=== PATIENT | female | born 1970 | race Caucasian/White ===

== ENCOUNTER 2017-01-16 19:08 | Emergency (ER) | payer OTHER ==
[~2017-01-16] VITALS: Ht 157.5 cm; Wt 72.2 kg
[~2017-01-16 19:08] MED LIST: CEFDINIR300 MG PO; PERCOCET 5/31 TABLET PO
[2017-01-16 20:02] LABS: HEMATOCRIT 36.2 % (36.0-46.0); MCH 27.3 PG (29.0-34.0); MCHC 32.6 G/DL (30.0-36.0); MCV 83.6 FL (83-99); MEAN PLAT.VOLUME 9.5 uM^3 (9.5-12.4); PLATELET COUNT 331 K/uL (156-360); RBC DIS.WIDTH-CV 14.6 % (11.8-14.6); RBC DIS.WIDTH-SD 44.7 % (39-53); RED BLOOD COUNT 4.33 M/uL (3.80-5.20); WHITE BLOOD COUNT 9.9 K/uL (4.1-10.2)
[2017-01-16 20:09] LABS: CHLORIDE 104 mEq/L (99-109); POTASSIUM 4.3 mEq/L (3.7-5.4); SODIUM 138 mEq/L (136-147)
[2017-01-16 20:11] LABS: GLUCOSE 101 mg/dL (70-99)
[2017-01-16 20:12] LABS: ANION GAP 7 MEQ/L (2-14)
[2017-01-16 20:13] LABS: TOTAL BILIRUBIN 0.2 mg/dL (0.0-1.0)
[2017-01-16 20:14] LABS: SERUM ETHYL ALCOHOL < 10 mg/dL
[2017-01-16 20:15] LABS: ALKALINE PHOSPHATASE 80 IU/L (3-129); GFR ESTIMATE (CALCULATED) > 59 mL/min/
[2017-01-16 20:16] LABS: UREA NITROGEN (BUN) 8 mg/dL (9-23)
[2017-01-17 01:24] LABS: ADD MIUA? YES; BILIRUBIN NEGATIVE; BLOOD NEGATIVE; COLOR YELLOW ((YELLOW)); GLUCOSE (STRIP) NEGATIVE; KETONES 5; LEUKOCYTES NEGATIVE; NITRITE POSITIVE; PROTEIN (STRIP) 30; SPECIFIC GRAVITY 1.024 (1.000-1.030); UROBILINOGEN 0.2 MG/DL (0.2-1.0)
[2017-01-17 01:34] LABS: AMPHETAMINE NEGATIVE (500 ng/mL); BACTERIA 2+ /HPF; BARBITURATES NEGATIVE (200 ng/mL); BENZODIAZEPINES PRESUMPTIVE POSITIVE (150 ng/mL); COCAINE NEGATIVE (150 ng/mL); EPITHELIAL CELLS RARE /HPF; METHADONE NEGATIVE (200 ng/mL); METHAMPHETAMINE NEGATIVE (500 ng/mL); MUCUS TRACE /LPF; OPIATES (MORPHINE) NEGATIVE (100 ng/mL); OXYCODONE PRESUMPTIVE POSITIVE (100 ng/mL); PHENCYCLIDINE NEGATIVE (25 ng/mL); RED BLOOD CELLS 0-5 /HPF (0-5); THC CANNABINOIDS NEGATIVE (50 ng/mL)
[2017-01-17 01:35] LABS: ADD MEDTOX COMMENT Y; INTERNAL CONTROLS VALID? YES; PROPOXYPHENE NEGATIVE (300 ng/mL); TRICYCLIC ANTIDEPRESSANTS PRESUMPTIVE POSITIVE (300 ng/mL)
[2017-01-17 02:25] LABS: BENZODIAZEPINES, URINE SCREEN POSITIVE (200 ng/mL)
[2017-01-17 02:36] VITALS: BP 99/78
== END 2017-01-17 02:38 | disposition home or self-care (01) ==
LOC: EME 19:08
PROVIDERS: Emergency Medicine
DX: F41.1 Generalized anxiety disorder (principal); F32.9 Major depressive disorder, single episode, unspecified; K21.9 Gastro-esophageal reflux disease without esophagitis; F17.200 Nicotine dependence, unspecified, uncomplicated
CPT/HCPCS: 80053; 81003; 84999; 85027; 90839; 99281; 99285; G0480; J1630; J2060

== ENCOUNTER 2017-06-27 16:46 | Inpatient (IN) | payer OTHER ==
[~2017-06-27] VITALS: Ht 165.1 cm; Wt 86.6 kg
[2017-06-27 17:29] LABS: HEMATOCRIT 33.4 % (36.0-46.0); MCH 24.2 PG (29.0-34.0); MCHC 31.4 G/DL (30.0-36.0); MCV 77.1 FL (83-99); MEAN PLAT.VOLUME 8.9 uM^3 (9.5-12.4); PLATELET COUNT 339 K/uL (156-360); RBC DIS.WIDTH-CV 16.8 % (11.8-14.6); RBC DIS.WIDTH-SD 47.2 % (39-53); RED BLOOD COUNT 4.33 M/uL (3.80-5.20); WHITE BLOOD COUNT 7.3 K/uL (4.1-10.2)
[2017-06-27] MEDS ORDERED: REMERON45 MG PO (17:35)
[2017-06-27] MEDS ORDERED: GABAPENTIN800 MG PO (17:35)
[2017-06-27 17:39] LABS: CHLORIDE 106 mEq/L (99-109); POTASSIUM 4.6 mEq/L (3.7-5.4); SODIUM 140 mEq/L (136-147)
[2017-06-27] MEDS ORDERED: DESYREL100 MG PO (17:40)
[2017-06-27 17:41] LABS: GLUCOSE 112 mg/dL (70-99)
[2017-06-27] MEDS ORDERED: FLEXERIL5 MG PO (17:41)
[2017-06-27 17:42] LABS: ANION GAP 8 MEQ/L (2-14)
[2017-06-27] MEDS ORDERED: FORFIVO XL450 MG PO (17:42)
[2017-06-27] MEDS ORDERED: ATARAX,VISTARIL25 MG PO (17:42)
[2017-06-27] MEDS ORDERED: CYMBALTA60 MG PO (17:43)
[2017-06-27 17:44] LABS: SERUM ETHYL ALCOHOL < 10 mg/dL
[2017-06-27 17:45] LABS: GFR ESTIMATE (CALCULATED) > 59 mL/min/
[2017-06-27 17:46] LABS: UREA NITROGEN (BUN) 10 mg/dL (9-23)
[2017-06-27] MEDS ORDERED: MINIPRESS2 MG PO (17:47)
[2017-06-27 17:53] LABS: QUANTITATIVE HCG < 4.0 MIU/ML
[2017-06-27 18:36] LABS: AMPHETAMINE NEGATIVE (500 ng/mL); BARBITURATES NEGATIVE (200 ng/mL); BENZODIAZEPINES PRESUMPTIVE POSITIVE (150 ng/mL); COCAINE NEGATIVE (150 ng/mL); INTERNAL CONTROLS VALID? YES; METHADONE NEGATIVE (200 ng/mL); METHAMPHETAMINE NEGATIVE (500 ng/mL); OPIATES (MORPHINE) NEGATIVE (100 ng/mL); OXYCODONE PRESUMPTIVE POSITIVE (100 ng/mL); PHENCYCLIDINE NEGATIVE (25 ng/mL); PROPOXYPHENE NEGATIVE (300 ng/mL); THC CANNABINOIDS NEGATIVE (50 ng/mL); TRICYCLIC ANTIDEPRESSANTS NEGATIVE (300 ng/mL)
[2017-06-27 18:37] LABS: ADD MEDTOX COMMENT Y
[2017-06-27 19:05] LABS: BENZODIAZEPINES, URINE SCREEN POSITIVE (200 ng/mL)
[2017-06-27] MEDS ORDERED: PERCOCET 10/1 TABLET PO (19:53)
[2017-06-27 21:19] VITALS: BP 134/90
[2017-06-28 07:46] VITALS: BP 123/64
== END 2017-06-28 11:44 | disposition home or self-care (01) | DRG 882 ==
LOC: EME 16:46 → EDOF 18:36 → ENRESERV 20:36 → 1WEST 21:12
PROVIDERS: Emergency Medicine
DX: F43.25 Adjustment disorder with mixed disturbance of emotions and conduct (principal); F60.9 Personality disorder, unspecified; S51.812A Laceration without foreign body of left forearm, initial encounter; X78.8XXA Intentional self-harm by other sharp object, initial encounter; F43.10 Post-traumatic stress disorder, unspecified; F41.9 Anxiety disorder, unspecified; F32.9 Major depressive disorder, single episode, unspecified; G89.29 Other chronic pain; M79.642 Pain in left hand; K21.9 Gastro-esophageal reflux disease without esophagitis; F17.200 Nicotine dependence, unspecified, uncomplicated
CPT/HCPCS: 80048; 84702; 84999; 85027; 90837; 97150 GO; 99281; 99285; G0480